=== PATIENT | male | born 1960 | race Caucasian/White ===

== ENCOUNTER 2020-05-14 10:38 | Observation (INO) | payer OTHER ==
[~2020-05-14] VITALS: Ht 182.9 cm; Wt 99.4 kg
--- NOTE | 2020-05-14 10:52 | NUR ---
triage: patient arrives with chest pain that began a few hours ago.
--- NOTE | 2020-05-14 10:56 | NUR ---
triage : patient reports took 325 aspirin at 0900 today for knee/cardiac reasons. he had meniscus repair surgery 05/06/20
--- NOTE | 2020-05-14 11:13 | NUR ---
PT C/O LEFT SIDE CP THAT STARTED AT 0800. NON-RADIATING. PT DENIES SOB, N/V OR HEADACHE. PT HAD RECENT KNEE SURGERY BUT HAS BEEN ACTIVE SINCE. PT STATES THE PAIN STARTED THIS AM WHEN HE WAS MOVING AROUND HE BEGAN TO NOTICE PRESSURE IN HIS CHEST. NO CARDAC HX.
[2020-05-14 11:29] LABS: BASOPHILS % (AUTO) 1 % (0-1); EOSINOPHILS % (AUTO) 3 % (1-7); LYMPHOCYTES % (AUTO) 36 % (22-44); MEAN CORPUSCULAR HEMOGLOBIN 31.3 pg (27.5-34.5); MEAN CORPUSCULAR HGB CONC 35.7 g/dL (33.2-36.2); MEAN PLATELET VOLUME 8.1 fL (7.4-10.4); MONOCYTES % (AUTO) 10 % (2-9); NEUTROPHILS % (AUTO) 50 % (42-75); PLATELET COUNT 222 x10^3/uL (130-400); RED BLOOD COUNT 5.24 x10^6/uL (4.38-5.82); RED CELL DISTRIBUTION WIDTH 13.1 % (9.4-14.8)
[2020-05-14] MEDS ORDERED: PLEASE ENTER ALLERGIES MC SCH (11:30)
[2020-05-14] MEDS ORDERED: SODIUM CHLORIDE FLUSH 10ML SYR IVF ONE (11:30)
[2020-05-14 11:34] LABS: MD NO
[2020-05-14 11:41] LABS: ALANINE AMINOTRANSFERASE 27 U/L (12-78); ALBUMIN 3.8 g/dL (3.4-5.0); ANION GAP 9 mmol/L (5-15); CALCIUM 9.3 mg/dL (8.5-10.1); CHLORIDE 106 mmol/L (98-107); CREATININE 0.97 mg/dL (0.7-1.3)
[2020-05-14 11:45] LABS: ALKALINE PHOSPHATASE 129 U/L (45-117); BILIRUBIN,TOTAL 0.8 mg/dL (0.2-1.0); TOTAL PROTEIN 7.4 g/dL (6.4-8.2); TROPONIN I < 0.015 ng/mL (0.000-0.045)
[2020-05-14] MEDS ORDERED: NITROGLYCERIN OINT 2%, 1GM TP ONE ×2 (12:13→12:30)
[2020-05-14] MEDS ORDERED: OMNIPAQUE 350 MG/ML, 100ML BOTTLE ONE (12:15)
--- NOTE | 2020-05-14 12:25 | NUR ---
PT OFF THE FLOOR TO RADIOLOGY
--- NOTE | 2020-05-14 12:31 | NUR ---
PT BACK IN ROOM
--- NOTE | 2020-05-14 12:34 | NUR ---
REPORT TO DEZ MCKNIGHT
[2020-05-14 13:16] VITALS: BP 147/99
[2020-05-14] MEDS ORDERED: ACETAMINOPHEN 325 MG TABLET PO PRN (13:30)
[2020-05-14] MEDS ORDERED: morphine SULFATE 10 MG/ML, 1ML IVPush PRN (13:30)
[2020-05-14] MEDS: ENOXAPARIN 40 MG/0.4 ML SQ SCH (14:00)
[2020-05-14 14:12] LABS: PROTHROMBIN TIME 10.7 Seconds (9.6-11.5)
[2020-05-14 14:15] LABS: TROPONIN I < 0.015 ng/mL (0.000-0.045)
[2020-05-14 14:49] VITALS: BP 115/77
[2020-05-14 19:39] LABS: TROPONIN I < 0.015 ng/mL (0.000-0.045)
[2020-05-14 19:50] VITALS: BP 107/61
[2020-05-15 01:35] VITALS: BP 115/68
[2020-05-15 05:05] LABS: BASOPHILS % (AUTO) 0 % (0-1); EOSINOPHILS % (AUTO) 2 % (1-7); LYMPHOCYTES % (AUTO) 22 % (22-44); MEAN CORPUSCULAR HEMOGLOBIN 31.2 pg (27.5-34.5); MEAN CORPUSCULAR HGB CONC 35.6 g/dL (33.2-36.2); MEAN PLATELET VOLUME 8.5 fL (7.4-10.4); MONOCYTES % (AUTO) 9 % (2-9); NEUTROPHILS % (AUTO) 67 % (42-75); PLATELET COUNT 199 x10^3/uL (130-400); RED BLOOD COUNT 4.67 x10^6/uL (4.38-5.82); RED CELL DISTRIBUTION WIDTH 12.9 % (9.4-14.8)
[2020-05-15 05:06] LABS: MD NO
[2020-05-15 05:12] LABS: ALBUMIN 3.4 g/dL (3.4-5.0); ANION GAP 5 mmol/L (5-15); CALCIUM 8.8 mg/dL (8.5-10.1); CHLORIDE 107 mmol/L (98-107)
[2020-05-15 05:24] LABS: ALANINE AMINOTRANSFERASE 28 U/L (12-78); ALKALINE PHOSPHATASE 104 U/L (45-117); BILIRUBIN,TOTAL 0.8 mg/dL (0.2-1.0); CREATININE 1.03 mg/dL (0.7-1.3); TOTAL PROTEIN 6.3 g/dL (6.4-8.2)
[2020-05-15 07:03] VITALS: BP 118/76
[2020-05-15] MEDS ORDERED: REGADENOSON 0.4 MG/5 ML SYRINGE ONE (07:33)
[2020-05-15 13:41] VITALS: BP 148/92
[2020-05-15] MEDS: ENOXAPARIN 40 MG/0.4 ML SQ SCH (14:00)
[2020-05-15] MEDS ORDERED: ASPI-963 PO (14:10)
[2020-05-15] MEDS ORDERED: NITR0.4T28 SL (14:10)
== END 2020-05-15 15:17 | disposition home or self-care (01) ==
LOC: ED 12:41 → 5SO 12:52 → INTOOBSV 13:10 → ED 13:10 → DCLOUNGE 05-15 15:12
PROVIDERS: ADMIT Family Medicine; ATTEND Family Medicine
DX: R07.89 Other chest pain (principal); I25.89 Other forms of chronic ischemic heart disease; R74.8 Abnormal levels of other serum enzymes; Z79.899 Other long term (current) drug therapy; Z79.82 Long term (current) use of aspirin
CPT/HCPCS: 36415; 71275; 78452; 80053; 83735; 83880; 84100; 84443; 84484; 85025; 85610; 93005; 93017; 93971; 96372; 99285; A9502; G0378; J1650; J2785; Q9967